=== PATIENT | female | born 1995 | race African-American/Black ===

== ENCOUNTER 2018-05-30 13:56 | Emergency (ER) | payer MEDICAID ==
[2018-05-30 14:04] VITALS: BP 118/66
[2018-05-30 15:49] LABS: ABSOLUTE EOSINOPHILS # (AUTO) 0.1 10^3/uL (0.0-0.6); ABSOLUTE LYMPHOCYTES (AUTO) 2.1 10^3/uL (0.5-4.7); ABSOLUTE MONOCYTES (AUTO) 0.5 10^3/uL (0.1-1.4); ABSOLUTE NEUT (AUTO) 4.1 10^3/uL (1.7-8.2); BASOPHILS % (AUTO) 0.5 % (0-2); HEMATOCRIT 36.1 % (36.0-47.0); HEMOGLOBIN 11.9 g/dL (12.0-15.5); LYMPHOCYTES % (AUTO) 30.7 % (13-45); MEAN CORPUSCULAR HEMOGLOBIN 28.5 pg (27.0-33.4); MEAN CORPUSCULAR VOLUME 86 fl (80-97); MONOCYTES % (AUTO) 6.7 % (3-13); PLATELET COUNT 212 10^3/uL (150-450); RED BLOOD COUNT 4.19 10^6/uL (3.72-5.28); RED CELL DISTRIBUTION WIDTH 13.9 % (11.5-14.0); SEGMENTED NEUTROPHILS % (AUTO) 61.1 % (42-78); TOTAL CELLS COUNTED % (AUTO) 100 %; WHITE BLOOD COUNT 6.8 10^3/uL (4.0-10.5)
[2018-05-30 15:55] LABS: APPEARANCE,URINE SLIGHTLY-CLOUDY; BILIRUBIN,URINE NEGATIVE (NEGATIVE); COLOR,URINE YELLOW; GLUCOSE, URINE NEGATIVE (NEGATIVE); KETONES,URINE NEGATIVE (NEGATIVE); LEUKOCYTE ESTERASE,URINE NEGATIVE (NEGATIVE); NITRITE,URINE NEGATIVE (NEGATIVE); PROTEIN,URINE NEGATIVE (NEGATIVE); URINE SPECIFIC GRAVITY 1.026
[2018-05-30 16:03] LABS: ALANINE AMINOTRANSFERASE 16 U/L (9-52); ALBUMIN 4.2 g/dL (3.5-5.0); ALKALINE PHOSPHATASE 62 U/L (38-126); ANION GAP 8 (5-19); ASPARTATE AMINO TRANSFERASE 18 U/L (14-36); BILIRUBIN,DIRECT 0.1 mg/dL (0.0-0.4); BILIRUBIN,TOTAL 2.2 mg/dL (0.2-1.3); BLOOD UREA NITROGEN 16 mg/dL (7-20); CALCIUM 9.6 mg/dL (8.4-10.2); CARBON DIOXIDE 29 mmol/L (22-30); CHLORIDE 103 mmol/L (98-107); GLUCOSE 86 mg/dL (75-110); POTASSIUM 3.9 mmol/L (3.6-5.0); TOTAL PROTEIN 7.4 g/dL (6.3-8.2)
[2018-05-30] MEDS ORDERED: ONDANSETRON ODT 4 MG TAB (6 TAB/ER DISP) PO PRN (16:50)
--- NOTE | 2018-05-30 16:51 | ER Document Report ---
ED GI/ - General Chief Complaint: Nausea/Vomiting Stated Complaint: VOMITING,NAUSEA,LIGHT HEADED Time Seen by Provider: 05/30/18 15:05 Primary Care Provider: JAMIN TERAN [NO LOCAL MD] - Follow up as needed Mode of Arrival: Ambulatory Information source: Patient Notes: 22-year-old female patient reports a 2-week history of feeling nauseous and lightheaded with vomiting for the past 4 days. Last menstrual period was 05/09/2018 she had a positive home test. There is no fever, cough, diarrhea or passing out. TRAVEL OUTSIDE OF THE [place] IN LAST 30 DAYS: No - Related Data Allergies/Adverse Reactions: No Known Allergies Allergy (Unverified 05/30/18 15:07) Past Medical History - General Information source: Patient - Social History Smoking Status: Never Smoker Cigarette use (# per day): No Chew tobacco use (# tins/day): No Smoking Education Provided: No Frequency of alcohol use: None Drug Abuse: None Lives with: Family Family History: Reviewed & Not Pertinent Patient has suicidal ideation: No Patient has homicidal ideation: No - Medical History Medical History: Negative Surgical Hx: Negative Review of Systems - Review of Systems Constitutional: No symptoms reported EENT: No symptoms reported Cardiovascular: Lightheaded Respiratory: No symptoms reported Gastrointestinal: Nausea, Vomiting. denies: Abdominal pain Genitourinary: No symptoms reported Female Genitourinary: See HPI - 3-03-29 Musculoskeletal: No symptoms reported Skin: No symptoms reported Hematologic/Lymphatic: No symptoms reported Neurological/Psychological: No symptoms reported Physical Exam - Vital signs Vitals: Temp Pulse Resp BP Pulse Ox 98.1 F 72 16 118/66 99 05/30/18 14:03 05/30/18 14:03 05/30/18 14:03 05/30/18 14:03 05/30/18 14:03 - General General appearance: Appears well, Alert In distress: None - HEENT Head: Normocephalic, Atraumatic Eyes: Normal Pupils: PERRL - Respiratory Respiratory status: No respiratory distress - Cardiovascular Rhythm: Regular - Abdominal Inspection: Normal - Back Back: Normal - Extremities General upper extremity: Normal inspection General lower extremity: Normal inspection - Neurological Neuro grossly intact: Yes - Psychological Associated symptoms: Normal affect, Normal mood - Skin Skin Temperature: Warm Skin Moisture: Dry Skin Color: Normal Course - Vital Signs Vital signs: Temp Pulse Resp BP Pulse Ox 98.1 F 72 16 118/66 99 05/30/18 14:03 05/30/18 14:03 05/30/18 14:03 05/30/18 14:03 05/30/18 14:03 - Laboratory Result Diagrams: 05/30/18 15:38 05/30/18 15:38 Laboratory results interpreted by me: 05/30/18 05/30/18 05/30/18 15:30 15:38 15:38 Hgb 11.9 L Total Bilirubin 2.2 H Urine Urobilinogen 2.0 H Discharge - Discharge Clinical Impression: Light-headed feeling Nausea and vomiting Qualifiers: Vomiting type: unspecified Vomiting Intractability: non-intractable Qualified Code(s): R11.2 - Nausea with vomiting, unspecified Condition: Stable Disposition: HOME, SELF-CARE Additional Instructions: Nausea or Vomiting, Nonspecific Vomiting (or nausea without vomiting) can be caused by many different problems. Of course, it can mean that something's wrong with the stomach, such as "stomach flu," ulcers, or inflammation. But it can also be a symptom of a problem that has nothing to do with the stomach or intestines. Vomiting is common with severe headaches, earaches, and tonsillitis. We see it with pneumonia or heart attacks. Drugs can cause nausea. Many abdominal problems cause vomiting; for example, gallstones, kidney stones, pancreatitis, and intestinal obstruction (blocked bowels). In most cases, curing the vomiting depends on fixing the problem that caused it. For temporary relief, we may use an anti-nausea medicine. For home use, we can prescribe suppositories, chewable pills, pills that dissolve in the mouth, or liquid anti-nausea drugs. If the vomiting seems to be caused by a problem in the stomach, acid-suppressing drugs may be prescribed as well. It's important to avoid dehydration. Sip clear liquids. Take increasing amounts of fluid over the first 24 hours. Then start small amounts of bland foods (such as dry toast, applesauce, mashed potato). Avoid aspirin, tobacco, and alcohol. Gradually resume your usual diet. If the vomiting worsens, if the problem that's making you vomit worsens, or if there's evidence of bleeding in the stomach (such as black, tarry stool, bloody or black vomit, or lightheadedness), you should return immediately. Call your doctor if you aren't improved in 24 to 36 hours. Your serum test was negative. Try taking the medication as dispensed for nausea and see if it helps. If it does help, then get the prescription filled. Follow-up with a local medical doctor if not improving. RETURN TO THE EMERGENCY ROOM IF ANY NEW OR WORSENING SYMPTOMS. Prescriptions: Ondansetron [Zofran Odt 4 mg Tablet] 1 - 2 tab PO Q4H #10 tab.rapdis Forms: Return to Work Referrals: LOCALMD,NO [NO LOCAL MD] - Follow up as needed
== END 2018-05-30 16:57 | disposition home or self-care (01) ==
LOC: ER 13:56
DX: R11.2 Nausea with vomiting, unspecified (principal); R42 Dizziness and giddiness
CPT/HCPCS: 36415; 80053; 81001; 84702; 85025; 99283

== ENCOUNTER 2018-06-20 07:07 | Emergency (ER) | payer MEDICAID ==
[2018-06-20] MEDS ORDERED: ACETAMINOPHEN 325 MG TABLET PO ONE (08:20)
--- NOTE | 2018-06-20 08:24 | ER Document Report ---
ED GI/ - General Chief Complaint: Abdominal Pain Stated Complaint: ABDOMINAL PAIN Time Seen by Provider: 06/20/18 08:14 Mode of Arrival: Ambulatory Information source: Patient Notes: Patient is an otherwise healthy 22-year-old female who presents to the emergency department with complaints of mid to low left-sided abdominal pain after having intercourse. She states that during intercourse she felt a pull and a pop in the left lower quadrant/left pelvis area. She states intermittent pain since that occurred. Patient denies any nausea, vomiting, diarrhea or fevers. Patient reports she has not had any vaginal bleeding or abnormal vaginal discharge. Patient states her last menstrual period ended just a few days ago. She has not on any control. TRAVEL OUTSIDE OF THE [place] IN LAST 30 DAYS: No - Related Data Allergies/Adverse Reactions: No Known Allergies Allergy (Unverified 05/30/18 15:07) Past Medical History - General Information source: Patient - Social History Smoking Status: Never Smoker Frequency of alcohol use: None Drug Abuse: None Family History: Reviewed & Not Pertinent Patient has suicidal ideation: No Patient has homicidal ideation: No - Medical History Medical History: Negative Renal/ Medical History: Denies: Hx Peritoneal Dialysis Past Surgical History: Reports: Other - Sweat gland surgery - Immunizations Immunizations up to date: Yes Review of Systems - Review of Systems Constitutional: No symptoms reported EENT: No symptoms reported Cardiovascular: No symptoms reported Respiratory: No symptoms reported Gastrointestinal: Abdominal pain - Left lower quadrant/pelvis Genitourinary: No symptoms reported Female Genitourinary: No symptoms reported Musculoskeletal: No symptoms reported Skin: No symptoms reported Hematologic/Lymphatic: No symptoms reported Neurological/Psychological: No symptoms reported Physical Exam - Vital signs Vitals: Temp Pulse Resp BP Pulse Ox 98.1 F 65 18 113/67 98 06/20/18 07:13 06/20/18 07:13 06/20/18 07:13 06/20/18 07:13 06/20/18 07:13 - Notes Notes: PHYSICAL EXAMINATION: GENERAL: Well-appearing, well-nourished and in no acute distress. HEAD: Atraumatic, normocephalic. EYES: Pupils equal round and reactive to light, extraocular movements intact, conjunctiva are normal. ENT: Nares patent, oropharynx clear without exudates. Moist mucous membranes. NECK: Normal range of motion, supple without lymphadenopathy LUNGS: Breath sounds clear to auscultation bilaterally and equal. No wheezes rales or rhonchi. HEART: Regular rate and rhythm without murmurs ABDOMEN: Soft, nondistended abdomen. Tenderness to palpation to suprapubic area. No guarding, no rebound. No masses appreciated. Female : deferred Musculoskeletal: Normal range of motion, no pitting or edema. No cyanosis. NEUROLOGICAL: Cranial nerves grossly intact. Normal speech, normal gait. Normal sensory, motor exams PSYCH: Normal mood, normal affect. SKIN: Warm, Dry, normal turgor, no rashes or lesions noted. Course - Re-evaluation Re-evalutation: 06/20/18 08:23 Patient appears well, nontoxic, is alert and interactive. Patient's vital signs are within normal limits at time of check-in. Patient will have labs drawn, urinalysis collected will be sent for a transvaginal ultrasound to evaluate for a ovarian cyst. Labs as recorded are unremarkable. Transvaginal ultrasound with no acute findings. Repeat abdominal examination is benign. Likely ruptured ovarian cyst. Patient will be discharged home with ED return precautions, patient verbalizes understanding of same. - Vital Signs Vital signs: Temp Pulse Resp BP Pulse Ox 98.1 F 65 16 110/71 100 06/20/18 11:40 06/20/18 11:40 06/20/18 11:40 06/20/18 11:40 06/20/18 11:40 - Laboratory Result Diagrams: 06/20/18 08:34 06/20/18 08:34 Laboratory results interpreted by me: 06/20/18 06/20/18 08:34 08:34 Hct 35.9 L Total Bilirubin 1.8 H Discharge - Discharge Clinical Impression: Lower abdominal pain Condition: Stable Disposition: HOME, SELF-CARE Additional Instructions: Your lab work and urine were unremarkable today. The test was negative. The transvaginal ultrasound was also normal. I think your pain was most likely caused by an ovarian cyst that ruptured. Please take either Tylenol or ibuprofen for any pain or discomfort. You may want to consider applying a warm pack to the area. If your pain worsens or you develop a fever please return to the emergency department. Forms: Return to Work
[2018-06-20 08:55] LABS: ABSOLUTE EOSINOPHILS # (AUTO) 0.1 10^3/uL (0.0-0.6); ABSOLUTE LYMPHOCYTES (AUTO) 1.8 10^3/uL (0.5-4.7); ABSOLUTE MONOCYTES (AUTO) 0.3 10^3/uL (0.1-1.4); ABSOLUTE NEUT (AUTO) 2.2 10^3/uL (1.7-8.2); BASOPHILS % (AUTO) 0.8 % (0-2); EOSINOPHILS % (AUTO) 2.6 % (0-6); HEMATOCRIT 35.9 % (36.0-47.0); MEAN CORPUSCULAR HEMOGLOBIN 28.5 pg (27.0-33.4); MEAN CORPUSCULAR HGB CONC 33.3 g/dL (32.0-36.0); MEAN CORPUSCULAR VOLUME 86 fl (80-97); MONOCYTES % (AUTO) 7.2 % (3-13); PLATELET COUNT 230 10^3/uL (150-450); RED BLOOD COUNT 4.19 10^6/uL (3.72-5.28); RED CELL DISTRIBUTION WIDTH 13.5 % (11.5-14.0); SEGMENTED NEUTROPHILS % (AUTO) 49.4 % (42-78); TOTAL CELLS COUNTED % (AUTO) 100 %; WHITE BLOOD COUNT 4.5 10^3/uL (4.0-10.5)
[2018-06-20 09:06] LABS: APPEARANCE,URINE SLIGHTLY-CLOUDY; BILIRUBIN,URINE NEGATIVE (NEGATIVE); COLOR,URINE YELLOW; GLUCOSE, URINE NEGATIVE (NEGATIVE); KETONES,URINE NEGATIVE (NEGATIVE); LEUKOCYTE ESTERASE,URINE NEGATIVE (NEGATIVE); NITRITE,URINE NEGATIVE (NEGATIVE); PROTEIN,URINE NEGATIVE (NEGATIVE); URINE SPECIFIC GRAVITY 1.021; UROBILINOGEN,URINE NEGATIVE mg/dL (<2.0)
[2018-06-20 09:10] LABS: ALANINE AMINOTRANSFERASE 15 U/L (9-52); ALBUMIN 4.1 g/dL (3.5-5.0); ALKALINE PHOSPHATASE 61 U/L (38-126); ANION GAP 7 (5-19); ASPARTATE AMINO TRANSFERASE 20 U/L (14-36); BILIRUBIN,DIRECT 0.2 mg/dL (0.0-0.4); BILIRUBIN,TOTAL 1.8 mg/dL (0.2-1.3); BLOOD UREA NITROGEN 16 mg/dL (7-20); CALCIUM 9.9 mg/dL (8.4-10.2); CARBON DIOXIDE 26 mmol/L (22-30); CHLORIDE 107 mmol/L (98-107); GLUCOSE 88 mg/dL (75-110); POTASSIUM 4.1 mmol/L (3.6-5.0); SODIUM 139.5 mmol/L (137-145); TOTAL PROTEIN 7.2 g/dL (6.3-8.2)
--- NOTE | 2018-06-20 10:57 | RADIOLOGY REPORT (SQ) ---
EXAM DESCRIPTION: U/S NON OB PEL TV W/DOPPLER COMPLETED DATE/TIME: 06/20/2018 10:29 am REASON FOR STUDY: L adnexal pain after intercourse, felt POP/pain COMPARISON: None. TECHNIQUE: Dynamic and static grayscale images acquired of the pelvis via transvaginal approach and recorded on PACS. Additional selected color Doppler and spectral images recorded. LIMITATIONS: None. FINDINGS: UTERUS: Contour normal. No mass. ENDOMETRIAL STRIPE: No focal or generalized thickening. No masses. CERVIX: No nabothian cysts. RIGHT OVARY AND DOPPLER: Normal size. No worrisome masses. Normal arterial vascular flow without evid ence for torsion. LEFT OVARY AND DOPPLER: Normal size. No worrisome masses. Normal arterial vascular flow without evide nce for torsion. FREE FLUID: None noted. OTHER: No other significant finding. MEASUREMENTS: UTERUS: 3.1 x 4.3 x 7.3 cm. ENDOMETRIAL STRIPE: 4.2 mm. RIGHT OVARY: 2.1 x 2.3 x 2.5 cm. LEFT OVARY: 2.3 x 2.5 x 3.5 cm. IMPRESSION: NORMAL TRANSVAGINAL PELVIC ULTRASOUND. TECHNICAL DOCUMENTATION: JOB ID: [id number] [employer]- All Rights Reserved Rev-07/26 Reading location - IP/workstation name: [email or web address]
[2018-06-20 11:43] VITALS: BP 110/71
== END 2018-06-20 11:42 | disposition home or self-care (01) ==
LOC: ER 07:07
DX: R10.32 Left lower quadrant pain (principal)
CPT/HCPCS: 36415; 76830; 80053; 81001; 84703; 85025; 93976; 99284

== ENCOUNTER 2018-08-01 02:46 | Emergency (ER) | payer MEDICAID ==
[2018-08-01 02:56] VITALS: BP 115/66
== END 2018-08-01 06:20 | disposition left against medical advice (07) ==
LOC: ER 02:46
DX: Z53.21 Procedure and treatment not carried out due to patient leaving prior to being seen by health care provider (principal); R10.9 Unspecified abdominal pain

== ENCOUNTER 2018-08-06 10:11 | Emergency (ER) | payer MEDICAID ==
[2018-08-06] MEDS ORDERED: ACETAMINOPHEN 325 MG TABLET PO ONE (11:23)
--- NOTE | 2018-08-06 11:24 | ER Document Report ---
ED Medical Screen (RME) - General Chief Complaint: Nausea/Vomiting/Diarrhea Stated Complaint: VOMITING Time Seen by Provider: 08/06/18 11:22 Mode of Arrival: Ambulatory Information source: Patient Notes: 23-year-old female presents to ED for complaint of nausea vomiting sore throat lightheaded and diarrhea for the last for 5 days. She states she is vomited twice today no diarrhea stools today. She states she went to [facility] and waited 10 hours and never did get anything but a test done. She states she they did tell her that she was not at that time. Patient is alert oriented respirations regular and unlabored speaking in full sentences walks with a even steady gait. Labs will be ordered and patient given Zofran as soon as we get in the test. I have greeted and performed a rapid initial assessment of this patient. A comprehensive ED assessment and evaluation of the patient, analysis of test results and completion of medical decision making process will be conducted by an additional ED providers. Dictation of this chart was performed using voice recognition software; therefore, there may be some unintended grammatical errors. TRAVEL OUTSIDE OF THE [place] IN LAST 30 DAYS: No - Related Data Allergies/Adverse Reactions: No Known Allergies Allergy (Verified 08/06/18 10:12) Past Medical History - Social History Frequency of alcohol use: None Drug Abuse: Marijuana Renal/ Medical History: Denies: Hx Peritoneal Dialysis Past Surgical History: Reports: Other - Sweat gland surgery - Immunizations Immunizations up to date: Yes Physical Exam - Vital signs Vitals: Temp Pulse BP Pulse Ox 98.5 F 92 123/68 97 08/06/18 10:16 08/06/18 10:16 08/06/18 10:16 08/06/18 10:16 Course - Vital Signs Vital signs: Temp Pulse Resp BP Pulse Ox 98.5 F 92 123/68 97 08/06/18 10:16 08/06/18 10:16 08/06/18 10:16 08/06/18 10:16
[2018-08-06 11:55] LABS: ABSOLUTE EOSINOPHILS # (AUTO) 0.1 10^3/uL (0.0-0.6); ABSOLUTE LYMPHOCYTES (AUTO) 1.5 10^3/uL (0.5-4.7); ABSOLUTE MONOCYTES (AUTO) 0.5 10^3/uL (0.1-1.4); ABSOLUTE NEUT (AUTO) 2.4 10^3/uL (1.7-8.2); BASOPHILS % (AUTO) 0.6 % (0-2); EOSINOPHILS % (AUTO) 2.2 % (0-6); HEMATOCRIT 39.3 % (36.0-47.0); HEMOGLOBIN 12.7 g/dL (12.0-15.5); LYMPHOCYTES % (AUTO) 33.5 % (13-45); MEAN CORPUSCULAR HEMOGLOBIN 27.7 pg (27.0-33.4); MEAN CORPUSCULAR HGB CONC 32.3 g/dL (32.0-36.0); MEAN CORPUSCULAR VOLUME 86 fl (80-97); MONOCYTES % (AUTO) 11.6 % (3-13); PLATELET COUNT 200 10^3/uL (150-450); RED BLOOD COUNT 4.57 10^6/uL (3.72-5.28); RED CELL DISTRIBUTION WIDTH 13.5 % (11.5-14.0); SEGMENTED NEUTROPHILS % (AUTO) 52.1 % (42-78); TOTAL CELLS COUNTED % (AUTO) 100 %; WHITE BLOOD COUNT 4.5 10^3/uL (4.0-10.5)
[2018-08-06 11:56] LABS: APPEARANCE,URINE CLEAR; BILIRUBIN,URINE NEGATIVE (NEGATIVE); COLOR,URINE YELLOW; GLUCOSE, URINE NEGATIVE (NEGATIVE); KETONES,URINE NEGATIVE (NEGATIVE); LEUKOCYTE ESTERASE,URINE NEGATIVE (NEGATIVE); NITRITE,URINE NEGATIVE (NEGATIVE); PROTEIN,URINE NEGATIVE (NEGATIVE); URINE SPECIFIC GRAVITY 1.013; UROBILINOGEN,URINE NEGATIVE mg/dL (<2.0)
[2018-08-06 12:18] LABS: ALANINE AMINOTRANSFERASE 18 U/L (9-52); ALBUMIN 4.7 g/dL (3.5-5.0); ALKALINE PHOSPHATASE 71 U/L (38-126); ANION GAP 14 (5-19); ASPARTATE AMINO TRANSFERASE 18 U/L (14-36); BILIRUBIN,DIRECT 0.1 mg/dL (0.0-0.4); BILIRUBIN,TOTAL 1.8 mg/dL (0.2-1.3); BLOOD UREA NITROGEN 10 mg/dL (7-20); CALCIUM 9.9 mg/dL (8.4-10.2); CARBON DIOXIDE 25 mmol/L (22-30); CHLORIDE 105 mmol/L (98-107); GLUCOSE 88 mg/dL (75-110); SODIUM 143.7 mmol/L (137-145); TOTAL PROTEIN 8.2 g/dL (6.3-8.2)
[2018-08-06] MEDS ORDERED: METOCLOPRAMIDE HCL 10 MG TABLET PO ONE (15:16)
--- NOTE | 2018-08-06 15:18 | ER Document Report ---
Addendum entered and electronically signed by RICH LAINEZ PA-C 08/06/18 16:42: Discharge - Discharge Clinical Impression: Viral syndrome, Nausea vomiting and diarrhea Condition: Good Disposition: HOME, SELF-CARE Instructions: Antinausea Medication ([facility]), Diarrhea, Nonspecific ([facility]), Intravenous (IV) Fluids ([facility]), Reglan ([facility]), Viral Syndrome ([facility]), Vomiting ([facility]) Prescriptions: Metoclopramide HCl [Reglan 10 mg Tablet] 1 tab PO Q6HP PRN #12 tablet PRN Reason: Referrals: [facility] [Provider Group] - Follow up as needed Original Note: ED General - General Chief Complaint: Nausea/Vomiting/Diarrhea Stated Complaint: VOMITING Time Seen by Provider: 08/06/18 11:22 Mode of Arrival: Ambulatory TRAVEL OUTSIDE OF THE [place] IN LAST 30 DAYS: No - HPI Patient complains to provider of: Week, and vomiting, nausea, cold sweats, fev er, sore throat Onset: Other - 4 to 5 days Onset/Duration: Sudden Quality of pain: Cramping Severity: Severe Pain Level: 5 Associated symptoms: Body/muscle aches, Chills, Diarrhea, Fever, Headache, Nausea, Vomiting, Sore throat Exacerbated by: Denies Relieved by: Denies Similar symptoms previously: No Recently seen / treated by doctor: No Notes: 23-year-old -[place] female coming in today with 4 to 5 days of nausea vomiting and diarrhea also fever and sore throat and myalgias. - Related Data Allergies/Adverse Reactions: No Known Allergies Allergy (Verified 08/06/18 10:12) Past Medical History - General Information source: Patient - Social History Smoking Status: Never Smoker Frequency of alcohol use: None Drug Abuse: Marijuana Family History: Reviewed & Not Pertinent Patient has suicidal ideation: No Patient has homicidal ideation: No Renal/ Medical History: Denies: Hx Peritoneal Dialysis Past Surgical History: Reports: Other - Sweat gland surgery - Immunizations Immunizations up to date: Yes Review of Systems - Review of Systems Notes: Constitutional: Positive fever and chills. Positive myalgias EENT: No eye redness. No eye pain. No ear pain. No sore throat. Cardiovascular: No chest pain. No palpitations. Respiratory: No cough. No shortness of breath. No respiratory distress. Gastrointestinal: Positive abdominal cramping, positive nausea vomiting and diarrhea.. Genitourinary: Atraumatic. No lesions. No pain. No discharge. Musculoskeletal: Atraumatic. No swelling. No deformities. Skin: No rash or lesions. Lymphatic: No swollen lymph nodes. Neurologic: No headache. No syncope. Psychiatric: No suicidal or homicidal ideation. Physical Exam - Vital signs Vitals: Temp Pulse BP Pulse Ox 98.5 F 92 123/68 97 08/06/18 10:16 08/06/18 10:16 08/06/18 10:16 08/06/18 10:16 - Notes Notes: General: Well-developed, well-nourished. In no acute distress. Non-toxic appearing. Cardiac: Well-perfused. Regular rate and rhythm. No murmurs, rubs, or gallops. Pulmonary: No respiratory distress. No cyanosis. Bilateral lung fiels are clear to auscultation. Abdominal: Non-distended. Non-rigid. Bowels sounds are present in all four quadrants. No guarding or rebound. HEENT: Head is atraumatic. Conjunctivae not reddened. No tearing. PERRL. EOMI. Orbits atraumatic. No periorbital swelling or erythema. Oropharynx is without erythema, swelling, or exudates. Neck: Supple. No adenopathy. No meningismus. Dermatologic: Warm with good turgor. No rash. Atraumatic. Chest: Atraumatic. No chest wall tenderness to palpation. Musculoskeletal: Moves all extremities well. No range of motion deficits. no muscular or joint tenderness. No paraspinal muscle tenderness. no midline spinal tenderness or step-off. Genitourinary: Examination deferred Neurologic: No gross neurologic deficits. Psychiatric: Normal mood. Course - Re-evaluation Re-evalutation: 08/06/18 15:15 Patient appears completely well. Joking around with her cousin in the room. Does not appear to be in any kind of distress. Lab results are reviewed and normal. I will go ahead and start her on a p.o. challenge after Reglan 10 mg. Suspect she will have no trouble with this and will go home shortly. 08/06/18 16:29 Tolerating fluids well. Will discharge - Vital Signs Vital signs: Temp Pulse Resp BP Pulse Ox 98.5 F 92 123/68 97 08/06/18 10:16 08/06/18 10:16 08/06/18 10:16 08/06/18 10:16 - Laboratory Result Diagrams: 08/06/18 11:43 08/06/18 11:43 Laboratory results interpreted by me: 08/06/18 11:43 Total Bilirubin 1.8 H Discharge - Discharge Clinical Impression: Viral syndrome, Nausea vomiting and diarrhea Condition: Good Disposition: HOME, SELF-CARE Instructions: Antinausea Medication ([facility]), Diarrhea, Nonspecific ([facility]), Intravenous (IV) Fluids ([facility]), Reglan ([facility]), Viral Syndrome ([facility]), Vomiting ([facility]) Prescriptions: Metoclopramide HCl [Reglan 10 mg Tablet] 1 tab PO Q6HP PRN #12 tablet PRN Reason: Referrals: [facility] [Provider Group] - Follow up as needed
[2018-08-06 17:18] VITALS: BP 113/66
== END 2018-08-06 17:17 | disposition home or self-care (01) ==
LOC: ER 10:11
DX: B34.9 Viral infection, unspecified (principal); R11.2 Nausea with vomiting, unspecified; R19.7 Diarrhea, unspecified; R50.9 Fever, unspecified; J02.9 Acute pharyngitis, unspecified; M79.10 Myalgia, unspecified site; R51 Headache; F12.10 Cannabis abuse, uncomplicated; R10.9 Unspecified abdominal pain
CPT/HCPCS: 36415; 80053; 81001; 81025; 85025; 87070; 87880; 99284

== ENCOUNTER 2018-11-28 14:47 | Emergency (ER) | payer MEDICAID ==
[2018-11-28] MEDS ORDERED: ONDANSETRON 4 MG TAB.RAPDIS PO ONE (15:09)
[2018-11-28] MEDS ORDERED: ACETAMINOPHEN 325 MG TABLET PO ONE (15:09)
--- NOTE | 2018-11-28 15:11 | ER Document Report ---
ED General - General Chief Complaint: Headache Stated Complaint: HEADACHE,VOMITING Time Seen by Provider: 11/28/18 15:04 Mode of Arrival: Ambulatory Information source: Patient Notes: This 23-year-old female with no past medical history reports emergency department with headache nausea vomiting diarrhea for 2 days. Reports last bowel movement was early this morning was diarrhea. Denies fever although she felt warm last night. Patient reports symptoms started with a headache. Then she started vomiting with diarrhea. 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 Denies past medical history. Patient reports she has not taken any Tylenol or anything for her nausea. Reports she does not like to take medications. TRAVEL OUTSIDE OF THE [place] IN LAST 30 DAYS: No - HPI Onset: Other Onset/Duration: Persistent Quality of pain: Achy Pain Level: 4 Associated symptoms: Diarrhea, Vomiting Exacerbated by: Denies Relieved by: Denies Similar symptoms previously: No Recently seen / treated by doctor: No - Related Data Allergies/Adverse Reactions: No Known Allergies Allergy (Verified 11/28/18 14:49) Past Medical History - General Information source: Patient Last Menstrual Period: just finished - Social History Smoking Status: Current Some Day Smoker Cigarette use (# per day): Yes Frequency of alcohol use: Occasional Drug Abuse: Marijuana Occupation: Call center Lives with: Family Family History: Reviewed & Not Pertinent Patient has suicidal ideation: No Patient has homicidal ideation: No - Medical History Medical History: Negative Renal/ Medical History: Denies: Hx Peritoneal Dialysis Past Surgical History: Reports: Other - Sweat gland surgery - Immunizations Immunizations up to date: Yes Review of Systems - Review of Systems Notes: Review HPI for review of systems., All other systems negative Physical Exam - Vital signs Vitals: Temp Pulse Resp BP Pulse Ox 98.2 F 72 16 110/69 100 11/28/18 14:49 11/28/18 14:49 11/28/18 14:49 11/28/18 14:49 11/28/18 14:49 - Notes Notes: PHYSICAL EXAMINATION: GENERAL: Well-appearing and in no acute distress HEAD: Atraumatic, normocephalic. EYES: Pupils equal round extraocular movements intact, sclera anicteric, conjunctiva are normal. ENT: nares patent, oropharynx clear without exudates. Moist mucous membranes. NECK: Normal range of motion, supple without lymphadenopathy LUNGS: CTAB and equal. No wheezes rales or rhonchi. HEART: Regular rate and rhythm without murmurs ABDOMEN: Soft, no tenderness with palpation. No guarding, no rebound EXTREMITIES: Normal range of motion NEUROLOGICAL: Cranial nerves grossly intact. PSYCH: Normal mood, normal affect. SKIN: Warm, Dry, normal turgor, no rashes or lesions noted Course - Re-evaluation Re-evalutation: 11/28/18 15:30 This 23-year-old healthy female presents with complaints of headache nausea vomi ting diarrhea for 2 days. Reports symptoms started with a headache. Patient has not taken anything for the headache such as Tylenol. Patient denies fever denies trauma. Patient is alert and oriented no distress. Will evaluate with labs and provide Tylenol and Zofran. Patient was instructed on plan of care and agrees. 11/28/18 16:30 Patient reports her headache is decreasing and she is feeling better. Drinking p.o. fluids. 11/28/18 17:07 Labs unremarkable patient reports she is feeling better, MANNING gone, no further vomiting or diarrhea, she will be discharged home with instructions to push fluids Tylenol as indicated for headache return if any symptoms. She verbalized understanding to all instructions. 11/28/18 16:22 11/28/18 16:22 MCV 86 fl (80-97) 11/28/18 16:22 MCH 28.3 pg (27.0-33.4) 11/28/18 16:22 MCHC 33.0 g/dL (32.0-36.0) 11/28/18 16:22 RDW 12.9 % (11.5-14.0) 11/28/18 16:22 Seg Neutrophils % 70.8 % (42-78) 11/28/18 16:22 Chloride 102 mmol/L (98-107) 11/28/18 16:22 Carbon Dioxide 27 mmol/L (22-30) 11/28/18 16:22 Anion Gap 9 (5-19) 11/28/18 16:22 Est GFR ( Amer) > 60 (>60) 11/28/18 16:22 Glucose 88 mg/dL (75-110) 11/28/18 16:22 Calcium 9.4 mg/dL (8.4-10.2) 11/28/18 16:22 Total Bilirubin 1.4 mg/dL (0.2-1.3) H 11/28/18 16:22 AST 17 U/L (14-36) 11/28/18 16:22 Alkaline Phosphatase 59 U/L (38-126) 11/28/18 16:22 Total Protein 7.3 g/dL (6.3-8.2) 11/28/18 16:22 Albumin 4.2 g/dL (3.5-5.0) 11/28/18 16:22 Urine Color YELLOW 11/28/18 16:22 Urine Appearance CLEAR 11/28/18 16:22 Urine pH 6.0 (5.0-9.0) 11/28/18 16:22 Ur Specific [place] 1.014 11/28/18 16:22 Urine Protein NEGATIVE mg/dL (NEGATIVE) 11/28/18 16:22 Urine Glucose (UA) NEGATIVE mg/dL (NEGATIVE) 11/28/18 16:22 Urine Ketones NEGATIVE mg/dL (NEGATIVE) 11/28/18 16:22 Urine Blood NEGATIVE (NEGATIVE) 11/28/18 16:22 Urine Nitrite NEGATIVE (NEGATIVE) 11/28/18 16:22 Ur Leukocyte Esterase NEGATIVE (NEGATIVE) 11/28/18 16:22 Urine WBC (Auto) 1 /HPF 11/28/18 16:22 11/28/18 17:15 - Vital Signs Vital signs: Temp Pulse Resp BP Pulse Ox 98.2 F 72 16 110/69 100 11/28/18 14:49 11/28/18 14:49 11/28/18 14:49 11/28/18 14:49 11/28/18 14:49 - Laboratory Result Diagrams: 11/28/18 16:22 11/28/18 16:22 Laboratory results interpreted by me: 11/28/18 11/28/18 16:22 16:22 Hgb 11.4 L Hct 34.5 L Total Bilirubin 1.4 H Discharge - Discharge Clinical Impression: Headache Qualifiers: Headache type: unspecified Headache chronicity pattern: unspecified pattern Intractability: not intractable Qualified Code(s): R51 - Headache Nausea & vomiting Qualifiers: Vomiting type: unspecified Vomiting Intractability: non-intractable Qualified Code(s): R11.2 - Nausea with vomiting, unspecified Diarrhea Qualifiers: Diarrhea type: unspecified type Qualified Code(s): R19.7 - Diarrhea, unspecified Condition: Stable Disposition: HOME, SELF-CARE Instructions: Antinausea Medication ([facility]), Diarrhea, Nonspecific ([facility]), Headache ([facility]), OTC Antidiarrhea Medication ([facility]), Vomiting ([facility]) Additional Instructions: *You have been evaluated for headache, nausea/vomiting/diarrhea *Take medication as prescribed *Ensure adequate fluid intake as discussed *Take Tylenol as indicated for headache. *Consider [id number] decongestant, take [id number] antidiarrhea medication as indicated *Follow up with a primary care provider within one week for recheck *Return to ED for worsening condition, changes, needs Forms: Return to Work
[2018-11-28 16:38] LABS: ABSOLUTE LYMPHOCYTES (AUTO) 1.6 10^3/uL (0.5-4.7); ABSOLUTE MONOCYTES (AUTO) 0.3 10^3/uL (0.1-1.4); ABSOLUTE NEUT (AUTO) 4.9 10^3/uL (1.7-8.2); BASOPHILS % (AUTO) 0.4 % (0-2); EOSINOPHILS % (AUTO) 0.6 % (0-6); HEMATOCRIT 34.5 % (36.0-47.0); HEMOGLOBIN 11.4 g/dL (12.0-15.5); LYMPHOCYTES % (AUTO) 23.3 % (13-45); MEAN CORPUSCULAR HEMOGLOBIN 28.3 pg (27.0-33.4); MEAN CORPUSCULAR VOLUME 86 fl (80-97); MONOCYTES % (AUTO) 4.9 % (3-13); PLATELET COUNT 215 10^3/uL (150-450); RED BLOOD COUNT 4.03 10^6/uL (3.72-5.28); RED CELL DISTRIBUTION WIDTH 12.9 % (11.5-14.0); SEGMENTED NEUTROPHILS % (AUTO) 70.8 % (42-78); TOTAL CELLS COUNTED % (AUTO) 100 %; WHITE BLOOD COUNT 6.9 10^3/uL (4.0-10.5)
[2018-11-28 16:42] LABS: APPEARANCE,URINE CLEAR; BILIRUBIN,URINE NEGATIVE (NEGATIVE); COLOR,URINE YELLOW; GLUCOSE, URINE NEGATIVE (NEGATIVE); KETONES,URINE NEGATIVE (NEGATIVE); LEUKOCYTE ESTERASE,URINE NEGATIVE (NEGATIVE); NITRITE,URINE NEGATIVE (NEGATIVE); PROTEIN,URINE NEGATIVE (NEGATIVE); URINE SPECIFIC GRAVITY 1.014; UROBILINOGEN,URINE NEGATIVE mg/dL (<2.0)
[2018-11-28 16:58] LABS: ALBUMIN 4.2 g/dL (3.5-5.0); ALKALINE PHOSPHATASE 59 U/L (38-126); ANION GAP 9 (5-19); ASPARTATE AMINO TRANSFERASE 17 U/L (14-36); BILIRUBIN,TOTAL 1.4 mg/dL (0.2-1.3); BLOOD UREA NITROGEN 14 mg/dL (7-20); CALCIUM 9.4 mg/dL (8.4-10.2); CARBON DIOXIDE 27 mmol/L (22-30); CHLORIDE 102 mmol/L (98-107); GLUCOSE 88 mg/dL (75-110); POTASSIUM 4.2 mmol/L (3.6-5.0); TOTAL PROTEIN 7.3 g/dL (6.3-8.2)
[2018-11-28] MEDS ORDERED: ONDANSETRON ODT 4 MG TAB (6 TAB/ER DISP) PO PRN (17:11)
[2018-11-28 17:26] VITALS: BP 117/78
== END 2018-11-28 17:26 | disposition home or self-care (01) ==
LOC: ER 14:47
DX: R51 Headache (principal); R11.2 Nausea with vomiting, unspecified; R19.7 Diarrhea, unspecified; F17.210 Nicotine dependence, cigarettes, uncomplicated
CPT/HCPCS: 99284; 36415; 85025; 81025; 80053; 81001; S0119

== ENCOUNTER 2018-12-18 04:44 | Emergency (ER) | payer MEDICAID ==
[2018-12-18] MEDS ORDERED: LIDOCAINE 1% INJ-PF (10 MG/ML) 30 ML SDV INJ ONE (05:44)
[2018-12-18] MEDS ORDERED: DIPH/PERTUSS(ACELL)/TETANUS VAC/PF 0.5 ML SYR (>=10YO) IM ONE (05:45)
[2018-12-18] MEDS ORDERED: AMOXICILLIN TR/POT CLAVULANATE 500-125 MG TAB PO ONE (05:45)
[2018-12-18] MEDS ORDERED: AMOXICILLIN TRIHYDRATE 500 MG CAPSULE PO ONE (05:45)
--- NOTE | 2018-12-18 05:47 | ER Document Report ---
ED Wound - General Chief Complaint: Laceration Stated Complaint: GASH ON LIP Time Seen by Provider: 12/18/18 05:40 Notes: Patient is a 23-year-old female that comes to the emergency department for chief complaint of laceration to her lower lip from a dog bite. She states it was her terrier, she states she does not know why the dog bit her, the dog bit her just prior to arrival. Dog is up-to-date on vaccinations, patient is not up-to-date on her tetanus. No other injuries reported. No other complaints. TRAVEL OUTSIDE OF THE [place] IN LAST 30 DAYS: No - Related Data Allergies/Adverse Reactions: No Known Allergies Allergy (Verified 11/28/18 14:49) Past Medical History - General Information source: Patient - Social History Smoking Status: Never Smoker Chew tobacco use (# tins/day): No Drug Abuse: None Lives with: Alone Family History: Reviewed & Not Pertinent Patient has suicidal ideation: No Patient has homicidal ideation: No Renal/ Medical History: Denies: Hx Peritoneal Dialysis Past Surgical History: Reports: Other - Sweat gland surgery - Immunizations Immunizations up to date: No Hx Diphtheria, Pertussis, Tetanus Vaccination: Yes Review of Systems - Review of Systems Constitutional: No symptoms reported EENT: See HPI Cardiovascular: No symptoms reported Respiratory: No symptoms reported Gastrointestinal: No symptoms reported Genitourinary: No symptoms reported Female Genitourinary: No symptoms reported Musculoskeletal: No symptoms reported Skin: See HPI Hematologic/Lymphatic: No symptoms reported Neurological/Psychological: No symptoms reported Physical Exam - Vital signs Vitals: Temp Pulse Resp BP Pulse Ox 98.5 F 87 14 124/77 100 12/18/18 04:53 12/18/18 04:53 12/18/18 04:53 12/18/18 04:53 12/18/18 04:53 - Notes Notes: GENERAL: Alert, interacts well. No acute distress. HEAD: Normocephalic, atraumatic. EYES: Pupils equal, round, and reactive to light. Extraocular movements intact. ENT: Oral mucosa moist, tongue midline. There is a 1 cm linear partial- thickness laceration over the right lower lip on the outside, this is not through to the inside, oropharynx unremarkable. Airway patent. Nares patent, no nasal septal hematoma, TM's intact. NECK: Full range of motion. Supple. Trachea midline. LUNGS: Clear to auscultation bilaterally, no wheezes, rales, or rhonchi. No respiratory distress. HEART: Regular rate and rhythm. No murmur ABDOMEN: Soft, non-tender. Non-distended. EXTREMITIES: Moves all 4 extremities spontaneously. BACK: no cervical, thoracic, lumbar midline tenderness. NEUROLOGICAL: Alert and oriented x3. Normal speech. Cranial nerves II through XII grossly intact. PSYCH: Normal affect, normal mood. SKIN: Warm, dry, normal turgor. No rashes or lesions noted. Course - Re-evaluation Re-evalutation: Tetanus updated. Wound cleaned very thoroughly and was repaired because this was on the face. Patient given Augmentin and prescribed Augmentin. Discussed care, expectations, follow-up, return precautions. Patient states understanding and agreement. - Vital Signs Vital signs: Temp Pulse Resp BP Pulse Ox 98.1 F 74 16 119/74 99 12/18/18 06:36 12/18/18 06:36 12/18/18 06:36 12/18/18 06:36 12/18/18 06:36 Procedures - Laceration/Wound Repair Right lower lip Wound length (cm): 1 Wound's Depth, Shape: Linear Anesthetic type: 1% Lidocaine Volume Anesthetic (mLs): 1 Wound explored: Clean, No foreign body removed Wound Repaired With: Sutures Suture Size/Type: 6:0, Nylon Layer Closure?: No Post-procedure NV exam normal: Yes Complications: No Discharge - Discharge Clinical Impression: Lip laceration Qualifiers: Encounter type: initial encounter Qualified Code(s): S01.511A - Laceration without foreign body of lip, initial encounter Dog bite Qualifiers: Encounter type: initial encounter Qualified Code(s): W54.0XXA - Bitten by dog, initial encounter Disposition: HOME, SELF-CARE Instructions: Tetanus Immunization Given (OM) Additional Instructions: The sutures can be removed in 5 to 7 days preferably at a medical facility. Keep clean, clean with soap and water, dab dry, you can keep a thin film of topical antibiotic over the area. Take the antibiotics as prescribed to completion to avoid infection. I recommend taking an [id number] probiotic with this to avoid diarrhea. Return for any concerning symptoms including swelling, pain, redness, discolored drainage, fever, or any other concerning symptoms. Prescriptions: Amox Tr/Potassium Clavulanate [Augmentin 475125 Tablet] 1 tab PO BID 7 Days #14 tablet Forms: Return to Work
[2018-12-18 06:39] VITALS: BP 119/74
== END 2018-12-18 06:35 | disposition home or self-care (01) ==
LOC: ER 04:44
DX: S01.511A Laceration without foreign body of lip, initial encounter (principal); S01.551A Open bite of lip, initial encounter; W54.0XXA Bitten by dog, initial encounter
CPT/HCPCS: 90715; 12011; J3490; 90471; 99282